=== PATIENT | male | born 1980 ===

== ENCOUNTER 2021-03-08 15:23 | Outpatient (CLI) | payer OTHER ==
--- NOTE | 2021-03-08 15:57 | SLEEP CARE CONSULTATION ---
Information from patient questionnaire entered by Lee Ann Pinto. I have reviewed and concur with the information entered by Lee Ann Pinto. This document represents the service I personally performed and the decisions made by me, Renuka Estrada ARNP. History of Present Illness Service Date and Time: 03/08/2021 1523 Reason for Visit: New patient Chief Complaint: reports: Snoring, Excessive daytime sleepiness, Frequent awakenings at night Date of Onset: years Usual bedtime: 10 pm Time it takes to fall asleep: 30 minutes Snores at night: Yes Observed to quit breathing while asleep: No Sleeps alone due to snoring: No Number of times waking at night: 4-5 Reasons for waking at night: reports: Snoring (only if sitting up and dozing off), Bathroom, Other (unknown reason). denies: Choking, Gasping for air Toss, Turn, or Twitch while sleeping: Yes (after about 3-4 hours) Recalls having dreams: No Usually gets out of bed at: 6-7 am Feels refreshed in the morning: Yes (sometimes) Morning headache: No Sleepy or fatigued during the day: Yes Ever fallen asleep while driving: No (no accidents) Takes day naps: Yes (3 times a week for about 1 hour on avg, sometimes 2-3 hrs) Dreams during day naps: No Prior sleep studies: No Additional HPI information: I had the pleasure of seeing HEATHER VARGAS today regarding the possibility of him having a sleep disorder. His current complaints are excessive daytime sleepiness, frequent night awakenings and snoring. He states he does not always wake up feeling rested. His has not told him that he has any pauses in breathing while he sleeps. He denies any choking or gasping in his sleep. He is "tired of being tired". He sleeps solidly for about 3-4 hours and then if he gets woken up he has difficulty falling back to sleep. He loves taking naps and is able to get a nap about 3 days a week for about an hour. He is still getting tired by 10 AM after a full night sleep. He snores loudly but his can still sleep in same room. He did do a home sleep test 3 years ago but did not sleep much that night. He was told he did not have sleep apnea at that time. He feels that if his mind is engaged he does not feel sleepy. He gets tired driving but does not fall asleep. His father has sleep apnea and is using a CPAP machine. 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 Patient is and lives in [place]. Have you smoked in the past 12 months: No Cigarettes per day (20/pack): 20 Years of smokin Quit date: 2008 Smoking Pack Years: 10.0 Alcohol use: Yes Alcohol amount and frequency: 2-4 beers 2 times a month Caffeine use: Yes Caffeine amount and frequency: 2-3 cups of coffee a day, 2 in the morning and 1 in the afternoon Family History Family history of sleep disordered breathing: Yes Family Hx Sleep Apnea: Father: Snoring, Sleep apnea - Treated Allergies and Home Medications Drug allergies reviewed: Yes (NKDA) Home medication list reviewed: Yes (no daily medications or supplement) Review of Systems Cardiovascular: denies: high blood pressure Gastrointestinal: denies: heartburn Neurological: denies: headaches Psychiatric: denies: anxiety, depression Ear/Nose/Throat: reports: wisdom teeth removed, other (swimmer's ear). denies: tonsillectomy Endocrine: denies: thyroid disease Immunologic: denies: allergies to food or environment Physical Exam Blood Pressure: 122/75 Cuff size: wrist Heart Rate: 57 O2 Saturation: 98 Height: 6 ft Weight: 195 lb Body Mass Index: 26.4 BMI Classification: Overweight Mouth and throat: narrow oropharynx Soft palate: long Hard palate: normal Uvula: normal Uvula visualization: 50% Mallampati Class II Tongue: enlarged in size with teeth solano on lateral edges Tonsils: 1+ Neck: normal w/o lymphadenopathy or thyromegaly Heart: regular rate and rhythm Lungs: clear bilaterally Impression and Plan 1. Suspected Obstructive Sleep Apnea-Hypopnea Syndrome, as suggested by a history of loud and irregular snoring, frequent awakening during the night, unrefreshed sleep, and excessive daytime sleepiness. Narrow oropharynx and obesity are common predisposing factors for obstructive sleep apnea-hypopnea syndrome. I recommend proceeding to polysomnography to confirm the diagnosis and to assess severity. If the patient has significant sleep disordered breathing, a manual CPAP titration study will also be performed to find the optimal treatment pressure. I informed the patient of what the sleep studies involve and after some discussion, obtained agreement to proceed. The pathophysiology of obstructive sleep apnea-hypopnea syndrome was discussed with the patient and health risks of cardiovascular and cerebrovascular disease if not treated. AAS brochure for obstructive sleep apnea-hypopnea syndrome given and reviewed. 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 Patient agreed to plan. * Schedule polysomnography +- manual CPAP titration study and return in 1-2 weeks after the study to discuss result and initiate therapy. * Avoid long distance driving or driving when feeling sleepy. * Avoid alcohol, sedative and muscle relaxant around bedtime. * Attempt to lose weight. * Review instructions provided by trained office staff on how to prepare for the sleep study. * Return for follow-up after sleep study completed. Counseling Topics: Weight loss health impact Visit Type: In Office Time Spent with Patient (minutes): 30 Provider Statement: I spent 100% of the Face to Face Visit with the patient with greater than 50% spent counseling the patient and coordination of care.
[2021-03-08 16:00] VITALS: BP 122/75
== END 2021-03-08 15:24 | disposition home or self-care (01) ==
LOC: SC 15:23
PROVIDERS: ATTEND Nurse Practitioner Family
DX: R06.83 Snoring (principal); G47.8 Other sleep disorders; R06.81 Apnea, not elsewhere classified; G47.10 Hypersomnia, unspecified; E66.3 Overweight; Z68.26 Body mass index [BMI] 26.0-26.9, adult
CPT/HCPCS: 99203; 99212

== ENCOUNTER 2021-03-14 14:47 | Outpatient (CLI) | payer OTHER | END 2021-03-14 14:48 | disposition home or self-care (01) | LOC: SC 14:47 | PROVIDERS: ATTEND Nurse Practitioner Family | DX: R06.83 Snoring (principal); G47.10 Hypersomnia, unspecified; G47.8 Other sleep disorders; E66.3 Overweight; Z68.26 Body mass index [BMI] 26.0-26.9, adult | CPT/HCPCS: 95806 ==

== ENCOUNTER 2021-04-06 15:05 | Outpatient (CLI) | payer OTHER ==
--- NOTE | 2021-04-06 15:36 | SLEEP CARE CONSULTATION ---
Information from patient questionnaire entered by Lee Ann Pinto. I have reviewed and concur with the information entered by Lee Ann Pinto. This document represents the service I personally performed and the decisions made by , Renuka Estrada ARNP. History of Present Illness Service Date and Time: 04/06/2021 1505 Initial [place] Sleepiness Scale score: 13 (in 2020) Current [place] Sleepiness Scale score: 15 Additional HPI information: HEATHER VARGAS returns for follow up and results of the recently performed home sleep study. The patient was informed of the following findings: Patient has no significant sleep disordered breathing with an average AHI of 2.2 and a wayne oxygen saturation of 91%. I explained the pathophysiology behind obstructive sleep apnea. Patient does not have sleep apnea and was advised how weight gain could increase the risk of developing sleep apnea in the future. I strongly encouraged the patient to lose weight. Patient counseled not drink alcohol less than 4 hours before bedtime as it can increase snoring and apnea. Patient was cautioned about risks of drowsy driving until sleepiness symptoms resolve. Sleep Study - Results Type of Sleep Study: Home sleep study Prior sleep studies: No Polysomnography/Home Sleep Study results: Physician Impression: The quality of the study is good. The length of the study is adequate (> 240 minutes). Please also see the tabulated and graphic data. 1. No significant sleep disordered breathing, with an AHI of 2.2/hr and wayne SaO2 of 91%. During the study, the patient had 11 apneas (11 obstructive, 0 central, 0 mixed) and 6 hypopneas. The longest episode lasted 60.0 seconds. The few respiratory events occurred more frequently during supine sleep (supine AHI was 3.3 and non-supine, 1.67). Allergies and Home Medications Home medication list reviewed: Yes (no changes) Review of Systems Review of systems same as previous: Yes (no changes) Physical Exam Heart Rate: 89 O2 Saturation: 97 Height: 6 ft Weight: 199 lb Body Mass Index: 26.9 BMI Classification: Overweight Impression and Plan 1. Suspected Obstructive Sleep Apnea-Hypopnea Syndrome, as suggested by a history of irregular snoring, frequent awakening during the night, unrefreshed sleep, and excessive daytime sleepiness. Patient understands that they may not replace the machine right away patient completed a home study but he did not sleep really well at night or at all due to worrying about the apparatus that he was wearing. He continues to experience daytime fatigue, sleepiness and feeling unrefreshed when he wakens in the morning. I feel it would be advantageous to have him do an in lab PSG to further evaluate him. I recommend proceeding to polysomnography to confirm the diagnosis and to assess severity. I obtained agreement to proceed. The pathophysiology of obstructive sleep apnea-hypopnea syndrome was discussed with the patient and health risks of cardiovascular and cerebrovascular disease if not treated. 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 Patient agreed to plan. * Schedule polysomnography +- manual CPAP titration study and return in 1-2 weeks after the study to discuss result and initiate therapy. * Avoid long distance driving or driving when feeling sleepy. * Avoid alcohol, sedative and muscle relaxant around bedtime. * Review instructions provided by trained office staff on how to prepare for the sleep study. * Return for follow-up after sleep study completed. Visit Type: In Office Time Spent with Patient (minutes): 15 Provider Statement: I spent 100% of the Face to Face Visit with the patient with greater than 50% spent counseling the patient and coordination of care.
== END 2021-04-06 15:06 | disposition home or self-care (01) ==
LOC: SC 15:05
PROVIDERS: ATTEND Nurse Practitioner Family
DX: R06.83 Snoring (principal); G47.8 Other sleep disorders; G47.10 Hypersomnia, unspecified; R53.83 Other fatigue
CPT/HCPCS: 99212